=== PATIENT | female | born 1940 | race Caucasian/White ===

== ENCOUNTER 2022-08-12 09:02 | Outpatient (CLI) | payer MEDICARE, SELFPAY | END 2022-08-12 09:03 | disposition home or self-care (01) | LOC: FRMREF 08-20 14:14 | PROVIDERS: PCP Physician Assistant Medical; Visit Provider Family Medicine | DX: R35.0 Frequency of micturition (principal); E78.5 Hyperlipidemia, unspecified; I12.9 Hypertensive chronic kidney disease with stage 1 through stage 4 chronic kidney disease, or unspecified chronic kidney disease; N18.30 Chronic kidney disease, stage 3 unspecified; N30.10 Interstitial cystitis (chronic) without hematuria; M85.80 Other specified disorders of bone density and structure, unspecified site; M06.9 Rheumatoid arthritis, unspecified; M79.7 Fibromyalgia; D68.51 Activated protein C resistance; Z13.21 Encounter for screening for nutritional disorder | CPT/HCPCS: 80053; 80061; 82043; 82306; 82570; 82607; 84443; 87086; 87186 ==

== ENCOUNTER 2023-03-16 14:14 | Outpatient (CLI) | payer MEDICARE, SELFPAY | END 2023-03-16 14:15 | disposition home or self-care (01) | PROVIDERS: PCP Physician Assistant Medical; Visit Provider Family Medicine | DX: Z00.00 Encounter for general adult medical examination without abnormal findings (principal); N18.30 Chronic kidney disease, stage 3 unspecified; I10 Essential (primary) hypertension; E78.5 Hyperlipidemia, unspecified; R53.83 Other fatigue | CPT/HCPCS: 80053; 84443 ==

== ENCOUNTER 2023-08-17 12:56 | Outpatient (CLI) | payer MEDICARE, SELFPAY | END 2023-08-17 12:57 | disposition home or self-care (01) | PROVIDERS: PCP Family Medicine; Visit Provider Family Medicine | DX: I10 Essential (primary) hypertension (principal); E78.5 Hyperlipidemia, unspecified; R35.0 Frequency of micturition; J39.9 Disease of upper respiratory tract, unspecified; Z11.52 Encounter for screening for COVID-19 | CPT/HCPCS: 80061; 82043; 82570; 86769; 87086 ==